=== PATIENT | female | born 1975 | race Caucasian/White ===

== ENCOUNTER 2021-12-03 12:47 | Emergency (ER) | payer SELFPAY ==
[~2021-12-03] VITALS: Ht 162.6 cm; Wt 76.7 kg
[2021-12-03 12:54] VITALS: BP 110/84
--- NOTE | 2021-12-03 13:00 | NUR ---
PT AMBULATED TO ER BED 11
[2021-12-03] MEDS ORDERED: HYDROcodone/APAP 5/325 MG 1 TAB TAB PO ONE (13:15)
--- NOTE | 2021-12-03 13:23 | NUR ---
46/F PRESENTS TO ED WITH C/O LEFT WRIST PAIN. PATIENT [place] [facility] [place] AND F[place], STATES SHE WAS DX WITH A WRIST FRACTURE AND PLACED IN A SPLINT. PATIENT REPORTS SHE IS FOLLOWING UP WITH A SPECIALIST TOMORROW BUT STATES SHE FEELS PAIN IS WORSENING AND HER RX OF NORCO RAN OUT YESTERDAY. PATIENT DENIES NEW INJURY OR TRAUMA, DENIES NUMBNESS OR TINGLING. REPORTS LAST DOSE OF NORCO WAS 24 HOURS AGO.
--- NOTE | 2021-12-03 13:31 | NUR ---
XRAY AT BEDSIDE
[2021-12-03] MEDS ORDERED: IBUP-2213 PO (14:07)
[2021-12-03] MEDS ORDERED: ACET-8386 PO (14:07)
[2021-12-03 14:25] VITALS: BP 110/84
--- NOTE | 2021-12-03 14:25 | NUR ---
Patient discharged with v/s stable. Written and verbal after care instructions ABOUT WRIST FRACTURE TREATED WITH IMMOBILIZATION given and explained. Patient alert, oriented and verbalized understanding of instructions. Ambulatory with steady gait. All questions addressed prior to discharge. ID band removed. Patient advised to follow up with PMD. Rx of NORCO 5-325 AND IBUPROFEN given. Patient educated on indication of medication including possible reaction and side effects. Opportunity to ask questions provided and answered. PATIENT EDUCATED ON USE OF NARCOTICS, ADVISED TO NOT DRINK OR DRIVE WHILE USING, PATIENT VERBALIZED UNDERSTANDING.
== END 2021-12-03 14:25 | disposition home or self-care (01) ==
LOC: MED 12:47
DX: S52.615A Nondisplaced fracture of left ulna styloid process, initial encounter for closed fracture (principal); Z76.0 Encounter for issue of repeat prescription; W18.30XA Fall on same level, unspecified, initial encounter; Y93.89 Activity, other specified; Y92.89 Other specified places as the place of occurrence of the external cause; Y99.8 Other external cause status
CPT/HCPCS: 73110; 99283